=== PATIENT | male | born 1985 | race Caucasian/White ===

== ENCOUNTER → 2019-01-18 | Outpatient (CLI) | payer BC ==
--- NOTE | 2019-01-18 22:34 | PCVCIMAG ---
EXAM: ABDOMINAL ULTRASOUND COMPLETE INDICATION: Abdominal pain FINDINGS: Gallbladder: No gallstones. No wall thickening or abnormal pericholecystic fluid. Liver: Normal in size measuring 16.0 cm in length. No focal masses. Bile ducts: No intra or extra hepatic bile duct dilatation. The common bile duct measures 3.0 mm. Pancreas: Unremarkable where seen. Spleen: Normal in size measuring 9.8 cm in greatest dimension. No focal masses. Right kidney: No hydronephrosis. Length measures 10.6 cm. Left kidney: No hydronephrosis. Length measures 12.1 cm. Inferior vena cava: Normal in size where seen. Aorta: Normal in caliber where seen. IMPRESSION: Increased echogenicity throughout the liver most compatible with diffuse fatty infiltration. Please correlate clinically. Abdomen otherwise unremarkable. No evidence of cholelithiasis. LOC:[id number]
== END | disposition home or self-care (01) ==
LOC: PCVCIMAG 13:18
PROVIDERS: ATTEND Internal Medicine Cardiovascular Disease
DX: R74.8 Abnormal levels of other serum enzymes (principal); R10.9 Unspecified abdominal pain
CPT/HCPCS: 76700

== ENCOUNTER → 2019-03-05 | Outpatient (CLI) | payer BC ==
--- NOTE | 2019-03-06 13:30 | PCVCIMAG ---
APPROVED REPORT Study performed: 03/05/2019 15:56:06 Exam: Stress Echocardiogram Indication: Hypertension, Family history of CAD Patient Location: Echo lab Ht: 6 ft 3 in HR: 85 bpm BP: 120/80 mmHg Rhythm: NSR Medical History Medical History: HTN Procedure The patient underwent an Exercise Stress Test using the Heriberto Protocol. Blood pressure, heart rate, and EKG were monitored. An Echocardiogram was performed by windmill technician in four stages in quad fashion. At peak stress, four selected images were obtained and placed side by side with resting images for comparison. Stress Test Details Stress Test: Exercise stress testing was performed using a Heriberto protocol. HR Resting HR: 85 bpmMax Heart Rate (APMHR): 187 bpm Max HR Achieved: 187 bpmTarget HR (85% APMHR): 158 bpm % of APMHR: 100 Recovery HR: 120 bpm HR response to stress: Normal HR response to stress BP Resting BP: 120/80 mmHg Max BP: 164/60 mmHg Recovery BP: 134/78 mmHg BP response to stress: Normal blood pressure response to stress. ECG Resting ECG: Sinus Rhythm Stress ECG: Sinus Rhythm Recovery ECG: Sinus Rhythm Clinical Reason for Termination: Maximal effort Exercise duration: 15 min sec Highest Stage Achieved: Stage 5: 5.0 mph at 18% grade. Exercise capacity: 17.50 METs Overall Exercise Capacity for Age: Good Pre-Stress Echo The resting Echocardiogram showed normal left ventricular contractility with an estimated Ejection Fraction of about 55-60%. Normal wall motion in all segments on baseline images. Post-Stress Echo The stress Echocardiogram showed normal left ventricular contractility with an estimated Ejection Fraction of about 60-65%. Normal augmentation of wall motion in all segments on post stress images. Clinical No clinical or ECG evidence for ischemia. Conclusion Clinical Response: Non-ischemic Exercise Capacity: Superior Stress ECG Response: Non-ischemic Stress Echo Images: Non-ischemic The left ventricle is normal in size and wall thickness in both the rest and stress images. Other Information Study Quality: Good <Conclusion> The left ventricle is normal in size and wall thickness in both the rest and stress images.
== END | disposition home or self-care (01) ==
LOC: PCVCIMAG 15:46
PROVIDERS: ATTEND Internal Medicine Cardiovascular Disease
DX: I10 Essential (primary) hypertension (principal); Z82.49 Family history of ischemic heart disease and other diseases of the circulatory system
CPT/HCPCS: 93325; 93351